=== PATIENT | male | born 1970 | race Caucasian/White ===

== ENCOUNTER 2017-01-13 14:11 | Emergency (ER) | payer BC ==
[~2017-01-13] VITALS: Ht 170.2 cm; Wt 86.4 kg
[2017-01-13] MEDS ORDERED: LIDOCAINE 1% MDV 20ML VIAL As Ordered ONE (15:05)
[2017-01-13] MEDS ORDERED: ADACEL/BOOSTRIX VACCINE (DIPHTH/PERTUSS/ACELL/TETANUS)0.5ML SYR (90715) IM ONE (15:30)
[2017-01-13 15:40] VITALS: BP 150/90
== END 2017-01-13 16:01 | disposition home or self-care (01) ==
LOC: M ED 14:11
DX: S61.211A Laceration without foreign body of left index finger without damage to nail, initial encounter (principal); W26.0XXA Contact with knife, initial encounter; Y92.018 Other place in single-family (private) house as the place of occurrence of the external cause; Y93.89 Activity, other specified; Y99.8 Other external cause status